=== PATIENT | male | born 1955 | race African-American/Black ===

== ENCOUNTER 2020-11-06 13:27 | Inpatient (IN) | payer OTHER ==
[~2020-11-06] VITALS: Ht 182.9 cm; Wt 82.6 kg
[2020-11-06] MEDS ORDERED: SODIUM CHLORIDE 0.9% 1,000 ML IV ONE ×2 (14:00→15:15)
[2020-11-06 14:35] LABS: Basophils # (auto) 0 10 ^3/uL (0-0.2); Basophils % (auto) 0.1 % (0.0-2.0); Eosinophils # (auto) 0 10 ^3/uL (0-0.8); Eosinophils % (auto) 0.3 % (0.0-7.0); Hematocrit 45.2 % (41.0-53.0); Hemoglobin 15.6 g/dL (13.5-17.5); Lymphocytes # (auto) 1.4 10 ^3/uL (0.4-5.4); Lymphocytes % (auto) 29.6 % (10.0-50.0); Mean Corpuscular Hemoglobin 30.1 pg (28.0-32.0); Mean Corpuscular Hgb Conc. 34.5 g/dL (32.0-36.0); Mean Corpuscular Volume 87.2 fL (80.0-100.0); Monocytes # (auto) 0.6 10 ^3/uL (0-1.3); Monocytes % (auto) 11.7 % (0.0-12.0); Neutrophils # (auto) 2.8 10 ^3/uL (1.6-8.6); Neutrophils % (auto) 58.3 % (37.0-80.0); Nucleated Red Blood Cells % 0.2 %; Red Blood Cells 5.19 10^6/uL (4.5-5.90); Red Cell Distribution Width 13.7 % (11.8-14.3); White Blood Cell 4.9 10^3/uL (4.4-10.8)
[2020-11-06 15:02] LABS: Albumin 2.9 g/dL (3.4-5.0); Anion Gap 6 (5-15); Blood Urea Nitrogen 7 mg/dL (7-18); Carbon Dioxide 24 mmol/L (21-32); Chloride 107 mmol/L (98-107); Glucose 105 mg/dL (74-106); Magnesium 2.6 mg/dL (1.6-2.6); Potassium 3.8 mmol/L (3.5-5.1); Sodium 137 mmol/L (136-145)
[2020-11-06 15:14] LABS: Alanine Aminotransferase 44 U/L (16-61); Alkaline Phosphatase 48 U/L (45-117); Aspartate Aminotransferase 43 U/L (15-37); BUN/Creatinine Ratio 6.9; Bilirubin, Total 0.5 mg/dL (0.2-1.0); GFR African American 95 mL/min; GFR Non-African American 78 mL/min; Total Protein 7.7 g/dL (6.4-8.2)
[2020-11-06] MEDS ORDERED: AZITHROMYCIN 500MG/ 250ML 250 ML IV ONE (16:15)
[2020-11-06] MEDS ORDERED: CHOLECALCIFEROL (VITD3) 2,000 UNIT CAP/TAB PO ONE (16:15)
[2020-11-06] MEDS ORDERED: ZINC SULFATE 220mg CAP or TAB PO ONE (16:15)
[2020-11-06] MEDS ORDERED: ASCORBIC ACID 500 MG TAB PO ONE (16:15)
[2020-11-06] MEDS ORDERED: cefTRIAXone 1GM/50ML D5W 50 ML IV ONE (16:15)
[2020-11-06] MEDS ORDERED: NITROGLYCERIN 0.4 MG SL TAB SL PRN (18:30)
[2020-11-06] MEDS ORDERED: MORPHINE SULFATE INJECTION 2 MG/ML SYRG IV PRN (18:30)
[2020-11-06 19:59] LABS: Urine Bacteria NONE SEEN /hpf (None Seen); Urine Blood Negative /uL (Negative); Urine Specific Gravity 1.007 (1.001-1.035); Urine WBC <1 /hpf (0 - 3)
[2020-11-07 04:39] LABS: Basophils # (auto) 0 10 ^3/uL (0-0.2); Basophils % (auto) 0.1 % (0.0-2.0); Eosinophils # (auto) 0 10 ^3/uL (0-0.8); Eosinophils % (auto) 0.4 % (0.0-7.0); Hematocrit 40.1 % (41.0-53.0); Hemoglobin 13.8 g/dL (13.5-17.5); Lymphocytes # (auto) 1.6 10 ^3/uL (0.4-5.4); Lymphocytes % (auto) 32.3 % (10.0-50.0); Mean Corpuscular Hemoglobin 30.3 pg (28.0-32.0); Mean Corpuscular Hgb Conc. 34.4 g/dL (32.0-36.0); Mean Corpuscular Volume 88.2 fL (80.0-100.0); Monocytes # (auto) 0.7 10 ^3/uL (0-1.3); Monocytes % (auto) 14.5 % (0.0-12.0); Neutrophils # (auto) 2.6 10 ^3/uL (1.6-8.6); Neutrophils % (auto) 52.7 % (37.0-80.0); Nucleated Red Blood Cells % 0.1 %; Red Blood Cells 4.55 10^6/uL (4.5-5.90); Red Cell Distribution Width 13.7 % (11.8-14.3)
[2020-11-07 05:01] LABS: Albumin 2.4 g/dL (3.4-5.0); Calcium 8.4 mg/dL (8.5-10.1); Potassium 3.9 mmol/L (3.5-5.1)
[2020-11-07 05:05] LABS: Bilirubin, Total 0.6 mg/dL (0.2-1.0); Total Protein 6.5 g/dL (6.4-8.2)
[2020-11-07 09:00] VITALS: BP 118/79
[2020-11-07] MEDS ORDERED: ATOR20TA50 PO (09:04)
[2020-11-07] MEDS ORDERED: ENOXAPARIN SOD 40 MG/0.4 ML SYRINGE SC SCH (10:00)
[2020-11-07] MEDS ORDERED: cefTRIAXone 1GM/50ML D5W 50 ML IV SCH (10:00)
[2020-11-07] MEDS ORDERED: AZITHROMYCIN 500MG/ 250ML 250 ML IV SCH (10:00)
[2020-11-07] MEDS ORDERED: DexAMETHasone SOD PHOS 10MG/1ML VIAL INJ IV SCH (10:00)
[2020-11-07] MEDS ORDERED: ASCORBIC ACID 500 MG TAB PO SCH (10:00)
[2020-11-07] MEDS ORDERED: CHOLECALCIFEROL (VITD3) 2,000 UNIT CAP/TAB PO SCH (10:00)
[2020-11-07] MEDS ORDERED: ZINC SULFATE 220mg CAP or TAB PO SCH (10:00)
== END 2020-11-07 13:30 | disposition home or self-care (01) | DRG 177 ==
LOC: ER 13:28 → OVERFLOW 18:27 → EAST 11-07 08:17
PROVIDERS: ADMIT Internal Medicine; ATTEND Internal Medicine
DX: U07.1 COVID-19 (principal); J12.82 Pneumonia due to coronavirus disease 2019; J96.00 Acute respiratory failure, unspecified whether with hypoxia or hypercapnia; E44.0 Moderate protein-calorie malnutrition; E78.5 Hyperlipidemia, unspecified
CPT/HCPCS: 36415; 71046; 80053; 81001; 83605; 83735; 84484; 85025; 87426; 87804; 93005; 96365; G0378; J0696; J1100

== ENCOUNTER 2021-07-03 07:58 | Emergency (ER) | payer OTHER ==
[~2021-07-03] VITALS: Ht 185.4 cm; Wt 88.0 kg
[~2021-07-03 07:58] MED LIST: ATOR20TA50 PO
[2021-07-03 08:25] LABS: Basophils # (auto) 0 10 ^3/uL (0-0.2); Basophils % (auto) 0.6 % (0.0-2.0); Eosinophils # (auto) 0.1 10 ^3/uL (0-0.8); Eosinophils % (auto) 1.6 % (0.0-7.0); Hematocrit 47.6 % (41.0-53.0); Hemoglobin 16.4 g/dL (13.5-17.5); Lymphocytes % (auto) 52.9 % (10.0-50.0); Mean Corpuscular Hemoglobin 30.4 pg (28.0-32.0); Mean Corpuscular Hgb Conc. 34.5 g/dL (32.0-36.0); Mean Corpuscular Volume 88.1 fL (80.0-100.0); Monocytes # (auto) 0.3 10 ^3/uL (0-1.3); Monocytes % (auto) 8.6 % (0.0-12.0); Neutrophils # (auto) 1.4 10 ^3/uL (1.6-8.6); Neutrophils % (auto) 36.3 % (37.0-80.0); Nucleated Red Blood Cells % 0.1 %; Red Cell Distribution Width 14.4 % (11.8-14.3); White Blood Cell 3.8 10^3/uL (4.4-10.8)
[2021-07-03 08:40] LABS: Albumin 3.6 g/dL (3.4-5.0); Calcium 9.1 mg/dL (8.5-10.1); Potassium 4.5 mmol/L (3.5-5.1)
[2021-07-03 08:44] LABS: BUN/Creatinine Ratio 9.5; Bilirubin, Total 0.6 mg/dL (0.2-1.0); Total Protein 7.7 g/dL (6.4-8.2)
[2021-07-03] MEDS ORDERED: NITROGLYCERIN 0.4 MG SL TAB SL ONE (09:15)
[2021-07-03] MEDS ORDERED: SODIUM CHLORIDE 0.9% 500 ML IV ONE (10:45)
[2021-07-03 16:00] VITALS: BP 136/83
== END 2021-07-03 16:57 | disposition home or self-care (01) ==
LOC: ER 07:58
DX: I20.9 Angina pectoris, unspecified (principal); D70.9 Neutropenia, unspecified; D69.6 Thrombocytopenia, unspecified; R94.31 Abnormal electrocardiogram [ECG] [EKG]
CPT/HCPCS: 36415; 71045; 80053; 84484; 85025; 87426; 93005; 96360; 99285; J7040

== ENCOUNTER 2023-04-11 03:50 | Emergency (ER) | payer OTHER ==
[~2023-04-11] VITALS: Ht 182.9 cm; Wt 85.8 kg
[2023-04-11 06:59] VITALS: BP 126/89; PULSE 96; RESP 18; TEMP 98.3; O2SAT 96
[2023-04-11 08:38] LABS: COVID19 ANTIGEN SOFIA FIA NEGATIVE (NEGATIVE)
[2023-04-11 08:39] LABS: Rapid Influenza A Negative (Negative); Rapid Influenza B Negative (Negative)
[2023-04-11] MEDS ORDERED: LORA-622 PO (08:59)
[2023-04-11] MEDS ORDERED: BENZ100C97 PO (08:59)
== END 2023-04-11 09:06 | disposition home or self-care (01) ==
LOC: ER 03:50
DX: J40 Bronchitis, not specified as acute or chronic (principal); E78.5 Hyperlipidemia, unspecified; Z20.822 Contact with and (suspected) exposure to COVID-19
CPT/HCPCS: 36415; 71046; 87426; 87804